=== PATIENT | male | born 1955 | race Caucasian/White ===

== ENCOUNTER 2018-03-24 10:09 | Inpatient (IN) | payer BC ==
--- NOTE | 2018-03-24 10:28 | ER Document Report ---
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 Lost consiousness. remembers falling and when woke up was on his left leg, foot was rotated externally and had pain in left hip. No chest pain, abdominal pain, neck pain or headache. Pain 2/5 at this time , 100 mcg Fentanyl given IV by EMS. Saline lock left antecubital. TRAVEL OUTSIDE OF THE [place] IN LAST 30 DAYS: No - Related Data Allergies/Adverse Reactions: No Known Allergies Allergy (Unverified 03/24/18 10:22) Past Medical History - General Information source: Patient - Social History Smoking Status: Former Smoker Frequency of alcohol use: None Drug Abuse: None Occupation: Retired Lives with: Family Family History: Reviewed & Not Pertinent - Past Medical History Cardiac Medical History: Reports: Hx Hypercholesterolemia, Hx Hypertension Endocrine Medical History: Reports: Hx Diabetes Mellitus Type 2 Review of Systems - Review of Systems Constitutional: No symptoms reported EENT: No symptoms reported Cardiovascular: No symptoms reported Respiratory: No symptoms reported Gastrointestinal: No symptoms reported Genitourinary: No symptoms reported Male Genitourinary: No symptoms reported Musculoskeletal: See HPI Skin: No symptoms reported Hematologic/Lymphatic: No symptoms reported Neurological/Psychological: No symptoms reported Physical Exam - Vital signs Vitals: Resp Pulse Ox 13 96 03/24/18 10:14 03/24/18 10:14 Interpretation: Normal - General General appearance: Appears well, Alert In distress: None - HEENT Head: Normocephalic, Atraumatic Eyes: Normal Conjunctiva: Normal Extraocular movements intact: Yes Pupils: PERRL Tympanic membrane: Normal Mucous membranes: Normal Neck: Supple - non tender c spine - Respiratory Respiratory status: No respiratory distress Chest status: Nontender Breath sounds: Normal Chest palpation: Normal - Cardiovascular Rhythm: Regular Heart sounds: Normal auscultation Murmur: No - Abdominal Inspection: Normal Distension: No distension Bowel sounds: Normal Tenderness: Nontender. No: Tender Organomegaly: No organomegaly - Back Back: Normal, Nontender - thoracc and lumbosacral - Extremities General upper extremity: Normal inspection, Nontender, Normal color, Normal ROM , Normal temperature General lower extremity: Tender - left great trochantur Notes: 2 + jennifer DP - Neurological Neuro grossly intact: Yes Cognition: Normal Orientation: AAOx4 Anne Coma Scale Eye Opening: Spontaneous [place] Coma Scale Verbal: Oriented [place] Coma Scale Motor: Obeys Commands Anne Coma Scale Total: 15 Speech: Normal Motor strength normal: LUE, RUE, LLE, RLE Sensory: Normal - Psychological Associated symptoms: Normal affect, Normal mood - Skin Skin Temperature: Warm Skin Moisture: Dry Skin Color: Normal Course - Re-evaluation Re-evalutation: 03/24/18 10:[address] is negative for degenerative Lizbeth's cervical spine, femoral neck fracture. EKG shows normal sinus rhythm with a right bundle branch block and a left anterior fascicular block. No EKG to compare it to. 03/24/18 11:[address] Partida who will take care of the hip of the patient is admitted by the hospitalist. Dr. Partida will do the surgery tomorrow. 03/24/18 11:29 03/24/18 11:31 Dr hall called for the admission per dr. Mir direction. Dr. hall wants the pt admitted to general surgery since he is a trauma pt. 03/24/18 11:58 03/24/18 12:[address] Clement who will come see the patient. 03/24/18 13:24 Dr. Clement will admit the patient he wants me to add in a chest x-ray which I did. I called Dr. Hall back and will put in a medicine consult 03/24/18 14:27 Nurse told me that the blood pressure was 90 systolic his arm was above his heart. His IV was not connected. I reconnected the IV and started giving him a IV bolus. Within 300 mL's of fluid his blood pressure was 114 systolic. I checked his abdomen again it is still nontender. The lab work was okay. I called Dr. Clement about him putting in admission orders and told him about the tenderness to his left chest that he did not have originally we will be getting a IV contrast CT of the chest. 03/24/18 16:03 ct chest and abd are negatuve. pt up to his room. - Vital Signs Vital signs: Temp Pulse Resp BP Pulse Ox 98.6 F 66 17 107/65 94 03/24/18 19:57 03/24/18 19:57 03/24/18 19:57 03/24/18 19:57 03/24/18 19:57 - Laboratory Result Diagrams: 03/24/18 11:19 03/24/18 11:19 Laboratory results interpreted by me: 03/24/18 03/24/18 03/24/18 11:19 11:19 11:19 Plt Count 131 L Seg Neutrophils % 79.5 H Lymphocytes % 10.8 L BUN 27 H Glucose 259 H Creatine Kinase 449 H CK-MB (CK-2) 11.40 H Total Protein 6.1 L Discharge - Discharge Clinical Impression: Hypertension, left chest wall tenderness Hip fracture, left Qualifiers: Encounter type: initial encounter Fracture type: closed Qualified Code(s): S72.002A - Fracture of unspecified part of neck of left femur, initial encounter for closed fracture Diabetes Qualifiers: Diabetes mellitus type: type 2 Diabetes mellitus care home insulin use: without manager long term care use Diabetes mellitus complication status: without complication Qualified Code(s): E11.9 - Type 2 diabetes mellitus without complications Hyperlipidemia Qualifiers: Hyperlipidemia type: unspecified Qualified Code(s): E78.5 - Hyperlipidemia, unspecified Fall Qualifiers: Encounter type: initial encounter Qualified Code(s): W19.XXXA - Unspecified fall, initial encounter Condition: Stable Disposition: ADMITTED INPATIENT Admitting Provider: Surgicalist
--- NOTE | 2018-03-24 10:54 | RADIOLOGY REPORT (SQ) ---
EXAM DESCRIPTION: CT HEAD WITHOUT COMPLETED DATE/TIME: 03/24/2018 10:48 am REASON FOR STUDY: headache COMPARISON: None. TECHNIQUE: Axial images acquired through the brain without intravenous contrast. Images reviewed wi th bone, brain and subdural windows. Images stored on PACS. All CT scanners at this facility use dose modulation, iterative reconstruction, and/or weight based d osing when appropriate to reduce radiation dose to as low as reasonably achievable (ALARA). [facility]: Dose Right [facility]: CareDose [facility]: Dose Right [facility]: Teradose 4D [facility]: [employer] RADIATION DOSE: CT Rad equipment meets quality standard of care and radiation dose reduction techniq ues were employed. CTDIvol: 53.2 mGy. DLP: 1017 mGy-cm. mGy. LIMITATIONS: None. FINDINGS: VENTRICLES: Normal size and contour. CEREBRUM: No masses. No hemorrhage. No midline shift. No evidence for acute infarction. Normal gra y/white matter differentiation. No areas of low density in the white matter. CEREBELLUM: No masses. No hemorrhage. No alteration of density. No evidence for acute infarction. EXTRAAXIAL SPACES: No fluid collections. No masses. ORBITS AND GLOBE: No intra- or extraconal masses. Normal contour of globe without masses. CALVARIUM: No fracture. PARANASAL SINUSES: No fluid or mucosal thickening. SOFT TISSUES: No mass or hematoma. OTHER: No other significant finding. IMPRESSION: NO ACUTE INTRACRANIAL IMAGING FINDINGS. EVIDENCE OF ACUTE STROKE: NO. COMMENT: Quality ID # 436: Final reports with documentation of one or more dose reduction techniques (e.g., Automated exposure control, adjustment of the mA and/or kV according to patient size, use of iterative reconstruction technique) TECHNICAL DOCUMENTATION: JOB ID: [id number] [employer]- All Rights Reserved Reading location - IP/workstation name: [email or web address]
--- NOTE | 2018-03-24 10:54 | RADIOLOGY REPORT (SQ) ---
EXAM DESCRIPTION: CT CERVICAL SPINE WITHOUT COMPLETED DATE/TIME: 03/24/2018 10:48 am REASON FOR STUDY: fell through arabella light COMPARISON: None. TECHNIQUE: Axial images acquired through the cervical spine without intravenous contrast. Images re viewed with lung, soft tissue and bone windows. Reconstructed coronal and sagittal MPR images review ed. Images stored on PACS. All CT scanners at this facility use dose modulation, iterative reconstruction, and/or weight based d osing when appropriate to reduce radiation dose to as low as reasonably achievable (ALARA). [facility]: Dose Right [facility]: CareDose [facility]: Dose Right [facility]: Teradose 4D [facility]: [employer] RADIATION DOSE: CT Rad equipment meets quality standard of care and radiation dose reduction techniq ues were employed. CTDIvol: 20.5 mGy. DLP: 423 mGy-cm. mGy. LIMITATIONS: None. FINDINGS: ALIGNMENT: Anatomic. MINERALIZATION: Normal. VERTEBRAL BODIES: No fractures or dislocation. DISCS: Multilevel disc space narrowing with osteophytes. FACETS, LATERAL MASSES, POSTERIOR ELEMENTS: Facet arthropathy. No fractures. No dislocation. No ac aundrea findings. HARDWARE: None in the spine. VISUALIZED RIBS: No fractures. LUNG APICES AND SOFT TISSUES: No significant or acute findings. OTHER: No other significant finding. IMPRESSION: CHRONIC DEGENERATIVE CHANGES. NO ACUTE FINDINGS. TECHNICAL DOCUMENTATION: JOB ID: [id number] Quality ID # [id number]: Final reports with documentation of one or more dose reduction techniques (e.g., Au tomated exposure control, adjustment of the mA and/or kV according to patient size, use of iterative reconstruction technique) 2010 [employer]- All Rights Reserved Reading location - IP/workstation name: [email or web address]
--- NOTE | 2018-03-24 11:10 | RADIOLOGY REPORT (SQ) ---
EXAM DESCRIPTION: HIP LEFT AP/LATERAL COMPLETED DATE/TIME: 03/24/2018 11:01 am REASON FOR STUDY: fall, hip pain COMPARISON: None. NUMBER OF VIEWS: Two views. TECHNIQUE: AP pelvis and additional frog-leg view of the left hip. LIMITATIONS: None. FINDINGS: MINERALIZATION: Normal. LEFT HIP: Moderately displaced intertrochanteric left femoral neck fracture. RIGHT HIP: No fracture or dislocation. No worrisome bone lesions. PUBIS AND ISCHIUM: No fracture. PELVIS: No fracture. SACRUM: No fracture or dislocation. No worrisome bone lesions. LOWER LUMBAR SPINE: No fracture or dislocation. No worrisome bone lesions. Degenerative disc disease . SOFT TISSUES: No findings. OTHER: No other significant finding. IMPRESSION: LEFT FEMORAL NECK FRACTURE ABOVE. TECHNICAL DOCUMENTATION: JOB ID: [id number] [employer]- All Rights Reserved Reading location - IP/workstation name: [email or web address]
[2018-03-24] MEDS ORDERED: HYDROMORPHONE HCL INJ/PF 2 MG/ML AMPULE IV ONE (11:16)
[2018-03-24] MEDS ORDERED: ONDANSETRON HCL INJ/PF 4 MG/2 ML SDV IV ONE (11:16)
[2018-03-24 11:38] LABS: ABSOLUTE EOSINOPHILS # (AUTO) 0.2 10^3/uL (0.0-0.6); ABSOLUTE LYMPHOCYTES (AUTO) 0.9 10^3/uL (0.5-4.7); ABSOLUTE MONOCYTES (AUTO) 0.6 10^3/uL (0.1-1.4); ABSOLUTE NEUT (AUTO) 6.7 10^3/uL (1.7-8.2); BASOPHILS % (AUTO) 0.4 % (0-2); HEMOGLOBIN 13.8 g/dL (13.5-17.0); LYMPHOCYTES % (AUTO) 10.8 % (13-45); MEAN CORPUSCULAR HEMOGLOBIN 30.9 pg (27.0-33.4); MEAN CORPUSCULAR HGB CONC 34.6 g/dL (32.0-36.0); MEAN CORPUSCULAR VOLUME 89 fl (80-97); MONOCYTES % (AUTO) 7.3 % (3-13); PLATELET COUNT 131 10^3/uL (150-450); RED BLOOD COUNT 4.48 10^6/uL (4.35-5.55); RED CELL DISTRIBUTION WIDTH 13.2 % (11.5-14.0); SEGMENTED NEUTROPHILS % (AUTO) 79.5 % (42-78); TOTAL CELLS COUNTED % (AUTO) 100 %; WHITE BLOOD COUNT 8.5 10^3/uL (4.0-10.5)
[2018-03-24 11:52] LABS: ALANINE AMINOTRANSFERASE 57 U/L (21-72); ALBUMIN 3.9 g/dL (3.5-5.0); ANION GAP 11 (5-19); ASPARTATE AMINO TRANSFERASE 47 U/L (17-59); BILIRUBIN,DIRECT 0.2 mg/dL (0.0-0.4); BILIRUBIN,TOTAL 0.6 mg/dL (0.2-1.3); BLOOD UREA NITROGEN 27 mg/dL (7-20); CALCIUM 9.5 mg/dL (8.4-10.2); CARBON DIOXIDE 27 mmol/L (22-30); CHLORIDE 106 mmol/L (98-107); CREATINE KINASE 449 U/L (55-170); GLUCOSE 259 mg/dL (75-110); NEONATAL BILIRUBIN RESULT 0.4 mg/dL (0.1-1.1); POTASSIUM 4.5 mmol/L (3.6-5.0); SODIUM 144.3 mmol/L (137-145); TOTAL PROTEIN 6.1 g/dL (6.3-8.2)
[2018-03-24 12:02] LABS: ALKALINE PHOSPHATASE 107 U/L (38-126)
[2018-03-24 12:03] LABS: TROPONIN I < 0.012 ng/mL
[2018-03-24] MEDS ORDERED: NORMAL SALINE 1000 ML 1,000 ML IV ONE ×2 (12:23→14:22)
[2018-03-24] MEDS ORDERED: DIPH/PERTUSS(ACELL)/TETANUS VAC/PF 0.5 ML SYR (>=10YO) IM ONE (12:32)
--- NOTE | 2018-03-24 13:57 | RADIOLOGY REPORT (SQ) ---
EXAM DESCRIPTION: CHEST SINGLE VIEW COMPLETED DATE/TIME: 03/24/2018 1:48 pm REASON FOR STUDY: fall COMPARISON: None. NUMBER OF VIEWS: One view. TECHNIQUE: Single frontal radiographic view of the chest acquired. LIMITATIONS: None. FINDINGS: LUNGS AND PLEURA: Low lung volumes. No opacities, masses or pneumothorax. No pleural eff usion. MEDIASTINUM AND HILAR STRUCTURES: No masses. No contour abnormality. HEART AND VASCULAR STRUCTURES: Normal size. No evidence for failure. BONES: No acute findings. HARDWARE: None in the chest. OTHER: No other significant finding. IMPRESSION: LOW LUNG VOLUMES. NO SIGNIFICANT RADIOGRAPHIC FINDING IN THE CHEST. TECHNICAL DOCUMENTATION: JOB ID: [id number] [employer]- All Rights Reserved Reading location - IP/workstation name: [email or web address]
[2018-03-24] MEDS ORDERED: NORMAL SALINE 1000 ML 500 ML IV ONE (14:12)
[2018-03-24] MEDS ORDERED: FENTANYL CITRATE INJ/PF 100 MCG/2 ML AMPUL IV ONE (14:34)
--- NOTE | 2018-03-24 14:44 | RADIOLOGY REPORT (SQ) ---
EXAM DESCRIPTION: CHEST SINGLE VIEW COMPLETED DATE/TIME: 03/24/2018 2:37 pm REASON FOR STUDY: REPEAT XRAY PER SARA DUE TO LOW LUNG VOLUMES COMPARISON: 03/24/2018 EXAM PARAMETERS: NUMBER OF VIEWS: One view. TECHNIQUE: Single frontal radiographic view of the chest acquired. RADIATION DOSE: NA LIMITATIONS: None. FINDINGS: LUNGS AND PLEURA: No opacities, masses or pneumothorax. No pleural effusion. MEDIASTINUM AND HILAR STRUCTURES: No masses. Contour normal. HEART AND VASCULAR STRUCTURES: Heart stable in size. Normal vasculature. BONES: No acute findings. HARDWARE: None in the chest. OTHER: No other significant finding. IMPRESSION: NO ACUTE RADIOGRAPHIC FINDING IN THE CHEST. TECHNICAL DOCUMENTATION: JOB ID: [id number] [employer]- All Rights Reserved Reading location - IP/workstation name: [email or web address]
[2018-03-24] MEDS ORDERED: DEXTROSE 40% GEL 15 GM TUBE PO PRN ×2 (14:47)
[2018-03-24] MEDS ORDERED: DEXTROSE 50%-WATER 25 GM/50 ML DISP.SYRIN IV PRN ×2 (14:47)
[2018-03-24] MEDS ORDERED: GLUCAGON,HUMAN RECOMB 1 MG INJ IM PRN (14:47)
--- NOTE | 2018-03-24 15:57 | RADIOLOGY REPORT (SQ) ---
EXAM DESCRIPTION: CT CHEST WITH COMPLETED DATE/TIME: 03/24/2018 3:44 pm REASON FOR STUDY: fall left chest wall tenderness COMPARISON: None. TECHNIQUE: CT scan of the chest performed using helical scanning technique with dynamic intravenous contrast injection. Images reviewed with lung, soft tissue and bone windows. Reconstructed coronal and sagittal MPR images reviewed. All images stored on PACS. All CT scanners at this facility use dose modulation, iterative reconstruction, and/or weight based d osing when appropriate to reduce radiation dose to as low as reasonably achievable (ALARA). [facility]: Dose Right [facility]: CareDose [facility]: Dose Right [facility]: Teradose 4D [facility]: [employer] CONTRAST TYPE AND DOSE: 100 Isovue 370- low osmolar. RENAL FUNCTION: Creatinine 1.02 RADIATION DOSE: . LIMITATIONS: None. FINDINGS: LUNGS AND PLEURA: Mild dependent atelectasis at the lung bases. No effusions. No pneumot horax. HILAR AND MEDIASTINAL STRUCTURES: No identified masses or abnormal nodes. HEART AND VASCULAR STRUCTURES: No aneurysm or dissection. No central pulmonary emboli. No pericardi al effusion. HARDWARE: None in the chest. UPPER ABDOMEN: See separate report of the CT of the abdomen. THYROID AND OTHER SOFT TISSUES: No masses. No adenopathy. BONES: No significant finding. OTHER: No other significant finding. IMPRESSION: NORMAL CT OF THE CHEST WITH IV CONTRAST. TECHNICAL DOCUMENTATION: JOB ID: [id number] Quality ID # [id number]: Final reports with documentation of one or more dose reduction techniques (e.g., Au tomated exposure control, adjustment of the mA and/or kV according to patient size, use of iterative reconstruction technique) 2010 [employer]- All Rights Reserved Reading location - IP/workstation name: [email or web address]
--- NOTE | 2018-03-24 16:00 | RADIOLOGY REPORT (SQ) ---
EXAM DESCRIPTION: CT ABD/PELVIS WITH IV ONLY COMPLETED DATE/TIME: 03/24/2018 3:44 pm REASON FOR STUDY: fall COMPARISON: None. TECHNIQUE: CT scan of the abdomen and pelvis performed using helical scanning technique with dynamic intravenous contrast injection. No oral contrast. Images reviewed with lung, soft tissue, and bone windows. Reconstructed coronal and sagittal MPR images reviewed. Delayed images for evaluation of the urinary system also acquired. All images stored on PACS. All CT scanners at this facility use dose modulation, iterative reconstruction, and/or weight based d osing when appropriate to reduce radiation dose to as low as reasonably achievable (ALARA). [facility]: Dose Right [facility]: CareDose [facility]: Dose Right [facility]: Teradose 4D [facility]: [employer] CONTRAST TYPE AND DOSE: contrast/concentration: Isovue 370.00 mg/ml; Total Contrast Delivered: 100.0 ml; Total Saline Delivered: 55.0 ml RENAL FUNCTION: Creatinine 1.2 RADIATION DOSE: CT Rad equipment meets quality standard of care and radiation dose reduction techniq ues were employed. CTDIvol: 16.2 - 18.1 mGy. DLP: 2391 mGy-cm.. LIMITATIONS: None. FINDINGS: LOWER CHEST: See separate report of the CT of the chest. LIVER: Normal size. No masses. No dilated ducts. SPLEEN: Normal size. No focal lesions. PANCREAS: No masses. No significant calcifications. No adjacent inflammation or peripancreatic fluid collections. Pancreatic duct not dilated. GALLBLADDER: No identified stones by CT criteria. No inflammatory changes to suggest cholecystitis. ADRENAL GLANDS: No significant masses or asymmetry. RIGHT KIDNEY AND URETER: No solid masses. No significant calcifications. No hydronephrosis or hyd roureter. LEFT KIDNEY AND URETER: Cyst. No significant calcifications. No hydronephrosis or hydroureter. AORTA AND VESSELS: No aneurysm. No dissection. Renal arteries, SMA, celiac without stenosis. RETROPERITONEUM: No retroperitoneal adenopathy, hemorrhage or masses. BOWEL AND PERITONEAL CAVITY: Distended stomach. APPENDIX: Normal. PELVIS: No mass. No free fluid. Normal bladder. ABDOMINAL WALL: No masses. No hernias. BONES: No significant or acute findings. OTHER: No other significant finding. IMPRESSION: Distended stomach. No other significant finding. TECHNICAL DOCUMENTATION: JOB ID: [id number] Quality ID # [id number]: Final reports with documentation of one or more dose reduction techniques (e.g., Au tomated exposure control, adjustment of the mA and/or kV according to patient size, use of iterative reconstruction technique) 2010 [employer]- All Rights Reserved Reading location - IP/workstation name: [email or web address]
[2018-03-24] MEDS ORDERED: RINGERS SOLUTION,LACTATED 1,000 ML IV PRN (16:27)
[2018-03-24] MEDS: INSULIN LISPRO 100 UNIT/ML 3 ML VIAL SUBCUT PRN (17:53)
[2018-03-24 18:12] LABS: APPEARANCE,URINE CLEAR; BILIRUBIN,URINE NEGATIVE (NEGATIVE); COLOR,URINE YELLOW; GLUCOSE, URINE >=500 mg/dL (NEGATIVE); KETONES,URINE NEGATIVE (NEGATIVE); LEUKOCYTE ESTERASE,URINE NEGATIVE (NEGATIVE); NITRITE,URINE NEGATIVE (NEGATIVE); PROTEIN,URINE 30 mg/dL (NEGATIVE); URINE SPECIFIC GRAVITY 1.039
[2018-03-24] MEDS: MORPHINE SULFATE 10 MG/ML INJ IV PRN ×2 (18:37→21:13)
[2018-03-24] MEDS ORDERED: PROPOFOL 1,000 MG/100 ML INFUS..BTL IV PRN (18:48)
--- NOTE | 2018-03-24 18:56 | PDOC CONSULTATION ---
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 and fell down about 12 feet onto his left hip Patient was brought to the ED for evaluation and was diagnosed of the left femur fracture without any other obvious injuries Patient was admitted under general surgery was orthopedic consult and medical consult Upon questioning patient has moderate pain He is alert awake he denies any loss of consciousness Denies chest pain no abdominal pain Denies nausea no vomiting History of Present Illness: J CARLOS MCKENNA is a 62 year old male Past Medical History Cardiac Medical History: Reports: Hyperlipidema, Hypertension Endocrine Medical History: Reports: Diabetes Mellitus Type 2 Past Surgical History Past Surgical History: Reports: Other - Cataract surgery Social History Information Source: Patient Lives with: Family Smoking Status: Never Smoker Frequency of Alcohol Use: Rare Hx Recreational Drug Use: No Drugs: None Hx Prescription Drug Abuse: No - Advance Directive Resuscitation Status: Full Code Surrogate healthcare decision maker:: His Nancy Family History Family History: CVA, DM Parental Family History Reviewed: Yes Children Family History Reviewed: Yes Sibling(s) Family History Reviewed.: Yes Medication/Allergy Home Medications: Ascorbic Acid [Vitamin C 500 mg Tablet] 500 mg PO DAILY 03/24/18 Aspirin 81 mg PO DAILY 03/24/18 Atorvastatin Calcium [Atorvastatin Calcium] 40 mg PO QHS 03/24/18 Difluprednate [Durezol] 1 drop OS Q12 03/24/18 Dulaglutide [Trulicity] 1.5 mg SQ MO@1000 03/24/18 Gabapentin [Gabapentin] 600 mg PO Q8 03/24/18 Krill/Alexander-3/Dha/Epa/Lipids [Alexander-3 Krill Oil 500 mg Sfgl] 1 each PO DAILY 01/06 Lisinopril [Prinivil 5 mg Tablet] 5 mg PO DAILY 03/24/18 Multivitamin [Multivitamins] 1 each PO QHS 03/24/18 Nepafenac [Ilevro] 1 drop OS DAILY 03/24/18 Sitagliptin Phos/Metformin HCl [Janumet 50-1,000 mg Tablet] 1 each PO BID Vitamin B Complex/Folic Acid [B-Complex Tablet] 0.4 mg PO QHS 03/24/18 Allergies/Adverse Reactions: No Known Allergies Allergy (Unverified 03/24/18 10:22) Review of Systems Constitutional: ABSENT: as per HPI, anorexia, chills, fatigue, fever(s), headache(s), night sweats, weakness, weight gain, weight loss, other Cardiovascular: ABSENT: chest pain, dyspnea on exertion, edema, orthropnea, palpitations Respiratory: ABSENT: cough, hemoptysis Gastrointestinal: ABSENT: abdominal pain, constipation, diarrhea, hematemesis, hematochezia, nausea, vomiting Musculoskeletal: PRESENT: as per HPI Neurological: ABSENT: abnormal gait, abnormal speech, confusion, dizziness, focal weakness, syncope Psychiatric: ABSENT: anxiety, depression, homidical ideation, suicidal ideation Endocrine: ABSENT: cold intolerance, heat intolerance, polydipsia, polyuria Hematologic/Lymphatic: ABSENT: easy bleeding, easy bruising Physical Exam Vital Signs: Temp Pulse Resp BP Pulse Ox 98.1 F 15 104/62 95 03/24/18 11:07 03/24/18 15:16 03/24/18 15:16 03/24/18 15:16 General appearance: PRESENT: mild distress, well-developed, well-nourished Head exam: PRESENT: atraumatic, normocephalic Eye exam: PRESENT: conjunctiva pink, EOMI, PERRLA. ABSENT: scleral icterus Ear exam: PRESENT: normal external ear exam Neck exam: ABSENT: carotid bruit, JVD, lymphadenopathy, thyromegaly Respiratory exam: PRESENT: clear to auscultation jennifer. ABSENT: rales, rhonchi, wheezes Cardiovascular exam: PRESENT: RRR. ABSENT: diastolic murmur, rubs, systolic murmur Pulses: PRESENT: normal dorsalis pedis pul GI/Abdominal exam: PRESENT: normal bowel sounds, soft. ABSENT: distended, guarding, mass, organolmegaly, rebound, tenderness Rectal exam: PRESENT: deferred Extremities exam: PRESENT: other - Left lower extremity leg externally rotated and flexed Tenderness and deformity of left thigh Neurological exam: PRESENT: alert, awake, oriented to person, oriented to place , oriented to time, oriented to situation, CN II-XII grossly intact. ABSENT: motor sensory deficit Psychiatric exam: PRESENT: appropriate affect Skin exam: PRESENT: dry, intact, warm. ABSENT: cyanosis, rash Results Laboratory Results: 03/24/18 17:00 Urine Color YELLOW Urine Appearance CLEAR Urine pH 5.0 Ur Specific [place] 1.039 Urine Protein 30 H Urine Glucose (UA) >=500 H Urine Ketones NEGATIVE Urine Blood NEGATIVE Urine Nitrite NEGATIVE Ur Leukocyte Esterase NEGATIVE Urine WBC (Auto) 4 Urine RBC (Auto) 2 EKG Comments: . SINUS RHYTHM [RLAFB] . RBBB AND LAFB Impressions: Hip X-Ray 03/24/18 10:26 IMPRESSION: LEFT FEMORAL NECK FRACTURE ABOVE. Cervical Spine CT 03/24/18 10:30 IMPRESSION: CHRONIC DEGENERATIVE CHANGES. NO ACUTE FINDINGS. Head CT 03/24/18 10:30 IMPRESSION: NO ACUTE INTRACRANIAL IMAGING FINDINGS. EVIDENCE OF ACUTE STROKE: NO. Chest X-Ray 03/24/18 13:22 IMPRESSION: LOW LUNG VOLUMES. NO SIGNIFICANT RADIOGRAPHIC FINDING IN THE CHEST. Chest CT 03/24/18 14:25 IMPRESSION: NORMAL CT OF THE CHEST WITH IV CONTRAST. Abdomen/Pelvis CT 03/24/18 14:42 IMPRESSION: Distended stomach. No other significant finding. Assessment & Plan - Diagnosis (1) Fracture of left femur Is this a current diagnosis for this admission?: Yes Plan: Management as per orthopedics (2) Hypertension Is this a current diagnosis for this admission?: Yes Plan: Continue previous meds (3) Diabetes Qualifiers: Diabetes mellitus type: type 2 Diabetes mellitus senior living insulin use: without senior living use Diabetes mellitus complication status: without complication Qualified Code(s): E11.9 - Type 2 diabetes mellitus without complications Is this a current diagnosis for this admission?: Yes Plan: Accu-Chek before meals at bedtime and lispro coverage (4) Fall Qualifiers: Encounter type: initial encounter Qualified Code(s): W19.XXXA - Unspecified fall, initial encounter Is this a current diagnosis for this admission?: Yes Plan: There was no history of syncopal episode ; no dizziness Follows accidental - Time Time Spent with patient: Patient has no history of coronary artery disease He does not give any history of exertional chest pain No history of palpitations and or shortness of breath Patient is at relatively low cardiac risk for surgery Time Spent: 50 to 70 Minutes
[2018-03-24] MEDS ORDERED: NORMAL SALINE 1000 ML 1,000 ML IV PRN (19:20)
--- NOTE | 2018-03-24 20:08 | PDOC H&P ---
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 He fell on his feet and then to his left side and then had a transient loss of consciousness. When he woke up, his left leg was bent c/o pains left hip. He denies any other injury other than mild pains left chest. Denies head injury. He claims he had 2 other episodes of transient loss of consciousness (Syncope) in the past. Past Medical History Cardiac Medical History: Reports: Hyperlipidema, Hypertension Endocrine Medical History: Reports: Diabetes Mellitus Type 2 Past Surgical History Past Surgical History: Reports: Other - Cataract surgery Social History Lives with: Family Smoking Status: Never Smoker Frequency of Alcohol Use: Rare Hx Recreational Drug Use: No Drugs: None Hx Prescription Drug Abuse: No - Advance Directive Resuscitation Status: Full Code Family History Family History: CVA, DM Parental Family History Reviewed: Yes Children Family History Reviewed: No Sibling(s) Family History Reviewed.: No Medication/Allergy Home Medications: Ascorbic Acid [Vitamin C 500 mg Tablet] 500 mg PO QHS 03/24/18 Aspirin 81 mg PO DAILY 03/24/18 Atorvastatin Calcium [Atorvastatin Calcium] 40 mg PO QHS 03/24/18 Difluprednate [Durezol] 1 drop OS Q12 03/24/18 Dulaglutide [Trulicity] 1.5 mg SQ MO@1000 03/24/18 Gabapentin [Gabapentin] 600 mg PO Q8 03/24/18 Krill/[place]-3/Dha/Epa/Lipids [[place]-3 Krill Oil 500 mg Sfgl] 1 each PO DAILY 01/06 Lisinopril [Prinivil 5 mg Tablet] 5 mg PO DAILY 03/24/18 Multivitamin [Multivitamins] 1 each PO QHS 03/24/18 Nepafenac [Ilevro] 1 drop OS DAILY 03/24/18 Sitagliptin Phos/Metformin HCl [Janumet 50-1,000 mg Tablet] 1 each PO BID Vitamin B Complex/Folic Acid [B-Complex Tablet] 0.4 mg PO QHS 03/24/18 Allergies/Adverse Reactions: No Known Allergies Allergy (Unverified 03/24/18 10:22) Review of Systems Constitutional: PRESENT: other - no headache Eyes: PRESENT: other - no visual/hearing changes Cardiovascular: PRESENT: other - no chest pains/cough Gastrointestinal: PRESENT: other - no abdominal pains Musculoskeletal: PRESENT: other - no back pains Neurological: PRESENT: syncope Hematologic/Lymphatic: PRESENT: other - no easy bruising Physical Exam Vital Signs: Temp Pulse Resp BP Pulse Ox 98.1 F 15 104/62 95 03/24/18 11:07 03/24/18 15:16 03/24/18 15:16 03/24/18 15:16 Intake & Output 03/23/18 03/24/18 03/25/18 06:59 06:59 06:59 Intake Total 450 Output Total 300 Balance 150 General appearance: PRESENT: mild distress Head exam: PRESENT: atraumatic Eye exam: PRESENT: conjunctiva pink Mouth exam: PRESENT: moist Neck exam: PRESENT: full ROM Respiratory exam: PRESENT: chest wall tenderness - mild left side, clear to auscultation jennifer Cardiovascular exam: PRESENT: RRR Pulses: PRESENT: normal radial pulses Vascular exam: PRESENT: normal capillary refill GI/Abdominal exam: PRESENT: soft Rectal exam: PRESENT: deferred Extremities exam: PRESENT: other - left leg externally rotated and shortened Palpable left ankle pulses Musculoskeletal exam: PRESENT: tenderness - left hip Neurological exam: PRESENT: alert, oriented to person, oriented to time, oriented to situation, reflexes normal Psychiatric exam: PRESENT: appropriate affect Skin exam: PRESENT: normal color, warm Results Laboratory Results: 03/24/18 17:00 Urine Color YELLOW Urine Appearance CLEAR Urine pH 5.0 Ur Specific [place] 1.039 Urine Protein 30 H Urine Glucose (UA) >=500 H Urine Ketones NEGATIVE Urine Blood NEGATIVE Urine Nitrite NEGATIVE Ur Leukocyte Esterase NEGATIVE Urine WBC (Auto) 4 Urine RBC (Auto) 2 Impressions: Hip X-Ray 03/24/18 10:26 IMPRESSION: LEFT FEMORAL NECK FRACTURE ABOVE. Cervical Spine CT 03/24/18 10:30 IMPRESSION: CHRONIC DEGENERATIVE CHANGES. NO ACUTE FINDINGS. Head CT 03/24/18 10:30 IMPRESSION: NO ACUTE INTRACRANIAL IMAGING FINDINGS. EVIDENCE OF ACUTE STROKE: NO. Chest X-Ray 03/24/18 13:22 IMPRESSION: LOW LUNG VOLUMES. NO SIGNIFICANT RADIOGRAPHIC FINDING IN THE CHEST. Chest CT 03/24/18 14:25 IMPRESSION: NORMAL CT OF THE CHEST WITH IV CONTRAST. Abdomen/Pelvis CT 03/24/18 14:42 IMPRESSION: Distended stomach. No other significant finding. Assessment & Plan - Diagnosis (1) Syncope Is this a current diagnosis for this admission?: Yes - Time Time Spent: 30 to 50 Minutes - Inpatient Certification Medical Necessity: Need For IV Fluids, Need for Pain Control, Need for Surgery - Plan Summary Plan Summary: Hospitalist consult for other comorbidities such as DM, syncope NPO past midnite Possible repair left hip fx by Ortho tomorrow
[2018-03-24] MEDS: ATORVASTATIN CALCIUM 40 MG TABLET PO SCH (21:11)
[2018-03-24] MEDS: GABAPENTIN 300 MG CAPSULE PO SCH (21:12)
[2018-03-24] MEDS: MULTIVITAMIN TABLET PO SCH (21:12)
[2018-03-24] MEDS ORDERED: VITAMIN B COMPLEX PO SCH (22:00)
[2018-03-24] MEDS ORDERED: FOLIC ACID PO SCH (22:00)
--- NOTE | 2018-03-24 23:18 | EKG REPORT ---
SEVERITY:- ABNORMAL ECG - SINUS RHYTHM RBBB AND LAFB : Confirmed by: Marry Guzman 24-Mar-2018 23:17:48
[2018-03-25] MEDS: MORPHINE SULFATE 10 MG/ML INJ IV PRN ×6 (00:07→16:44)
[2018-03-25] MEDS: INSULIN LISPRO 100 UNIT/ML 3 ML VIAL SUBCUT PRN ×3 (06:51→22:40)
[2018-03-25] MEDS ORDERED: CEFAZOLIN SODIUM 2 GM in DEXTROSE 5%-WATER 100 ML IV PRN (08:22)
[2018-03-25] MEDS ORDERED: CEFAZOLIN SODIUM 2 GM in NORMAL SALINE 100 ML IV PRN (09:13)
[2018-03-25] MEDS ORDERED: KRILL PO SCH (10:00)
[2018-03-25] MEDS ORDERED: EPA PO SCH (10:00)
[2018-03-25] MEDS ORDERED: LIPIDS PO SCH (10:00)
[2018-03-25] MEDS ORDERED: OMEGA PO SCH (10:00)
[2018-03-25] MEDS ORDERED: DHA PO SCH (10:00)
[2018-03-25] MEDS ORDERED: [UNRECOGNIZED DRUG - OTHER] PO SCH (10:00)
[2018-03-25] MEDS ORDERED: FENTANYL CITRATE INJ/PF 100 MCG/2 ML AMPUL ONE (10:45)
[2018-03-25] MEDS ORDERED: MIDAZOLAM 2 MG/2 ML INJ ONE (10:46)
[2018-03-25] MEDS ORDERED: PROPOFOL INJ 200 MG/20 ML VIAL IV ONE (10:46)
[2018-03-25] MEDS ORDERED: EPHEDRINE SULFATE INJ 50 MG/1 ML AMPULE ONE (10:46)
[2018-03-25] MEDS ORDERED: TETRACAINE HCL/PF 20MG/2ML AMPULE (SPINAL) ONE (10:47)
[2018-03-25] MEDS ORDERED: ONDANSETRON HCL INJ/PF 4 MG/2 ML SDV ONE (10:48)
[2018-03-25] MEDS ORDERED: BUPIVACAINE HCL 0.5 % INJ/PF 30 ML SDV ONE (10:56)
[2018-03-25] MEDS ORDERED: DIPHENHYDRAMINE HCL 50 MG/ML VIAL IV PRN (11:54)
[2018-03-25] MEDS ORDERED: FENTANYL CITRATE INJ/PF 100 MCG/2 ML AMPUL IV PRN ×3 (11:54)
[2018-03-25] MEDS ORDERED: MEPERIDINE HCL/PF INJ 25 MG/1 ML DISP.SYRIN IV PRN (11:54)
[2018-03-25] MEDS ORDERED: MORPHINE SULFATE 10 MG/ML INJ IV PRN (11:54)
[2018-03-25] MEDS ORDERED: PROMETHAZINE HCL INJ 25 MG/1 ML VIAL IV PRN ×2 (11:54)
--- NOTE | 2018-03-25 12:04 | Operative Report ---
Operative Report DATE OF SURGERY: 03/25/18 PREOPERATIVE DIAGNOSIS: Left intratrochanteric femur fracture OPERATION: Open reduction internal fixation left intratrochanteric femur fracture SURGEON: DOMI GROSSMAN ANESTHESIA: Spinal ESTIMATED BLOOD LOSS: 100 PROCEDURE: With the patient supine on the fracture table the left lower extremities manipulated to affected near anatomic reduction. Subsequent was prepped and draped in a sterile fashion. The pin was placed percutaneously down to the greater trochanter and down into the femoral diaphysis. Its position is confirmed in 2 planes with fluoroscopy. A combined reamers and used to fashion a cortical opening. This is removed as well as initial guidepin. A long ball- tipped guide pin is placed down the femur and the femoral length is measured to be 380 mm. Flexible reamers were then used to increase the intramedullary diameter 12.5 mm. Subsequently a Radha gamma 3 11 mm x 125 by 380 mm nail was advanced over the guide hank to an appropriate depth. A 100 mm proximal interlock is placed. A 55 mm distal interlock is placed. The fracture reduction and the hardware placement is again checked fluoroscopically and felt to be adequate. The wounds irrigated, closed with Vicryl followed by aurea and a sterile dressing. The patient returned to PACU in satisfactory condition.
[2018-03-25] MEDS ORDERED: ONDANSETRON 4 MG TAB.RAPDIS PO PRN (12:58)
[2018-03-25] MEDS ORDERED: RINGERS SOLUTION,LACTATED 1,000 ML IV PRN (13:00)
[2018-03-25] MEDS: GABAPENTIN 300 MG CAPSULE PO SCH ×2 (14:28→21:51)
[2018-03-25] MEDS: ASCORBIC ACID 500 MG TABLET PO SCH (14:29)
[2018-03-25] MEDS: LISINOPRIL 5 MG TABLET PO SCH (14:30)
--- NOTE | 2018-03-25 14:37 | RADIOLOGY REPORT (SQ) ---
EXAM DESCRIPTION: NO CHG FLUORO; HIP IN OPERATING RM COMPLETED DATE/TIME: 03/25/2018 2:27 pm REASON FOR STUDY: ORIF LEFT HIP ASST WITH FLUORO IN OR COMPARISON: 03/24/2018. FLUOROSCOPY TIME: 1.0 minute. 6 images saved to PACS. TECHNIQUE: Intra-operative images acquired during surgical procedure to evaluate progress. NUMBER OF IMAGES: 6 images. LIMITATIONS: None. FINDINGS: Images of the hip and femur acquired during surgical fixation and placement of hardware. IMPRESSION: IMAGE(S) OBTAINED DURING PROCEDURE. COMMENT: Quality ID [id number]: Final reports for procedures using fluoroscopy that document radiation exp osure indices, or exposure time and number of fluorographic images (if radiation exposure indices are not available) Please consult full operative report of the attending physician for description of the procedure. TECHNICAL DOCUMENTATION: JOB ID: [id number] [employer]- All Rights Reserved Reading location - IP/workstation name: [email or web address]
--- NOTE | 2018-03-25 14:37 | RADIOLOGY REPORT (SQ) ---
EXAM DESCRIPTION: NO CHG FLUORO; HIP IN OPERATING RM COMPLETED DATE/TIME: 03/25/2018 2:27 pm REASON FOR STUDY: ORIF LEFT HIP ASST WITH FLUORO IN OR COMPARISON: 03/24/2018. FLUOROSCOPY TIME: 1.0 minute. 6 images saved to PACS. TECHNIQUE: Intra-operative images acquired during surgical procedure to evaluate progress. NUMBER OF IMAGES: 6 images. LIMITATIONS: None. FINDINGS: Images of the hip and femur acquired during surgical fixation and placement of hardware. IMPRESSION: IMAGE(S) OBTAINED DURING PROCEDURE. COMMENT: Quality ID [id number]: Final reports for procedures using fluoroscopy that document radiation exp osure indices, or exposure time and number of fluorographic images (if radiation exposure indices are not available) Please consult full operative report of the attending physician for description of the procedure. TECHNICAL DOCUMENTATION: JOB ID: [id number] [employer]- All Rights Reserved Reading location - IP/workstation name: [email or web address]
[2018-03-25] MEDS: OXYCODONE HCL IR 5 MG TABLET PO PRN ×2 (15:23→21:51)
--- NOTE | 2018-03-25 17:32 | PDOC PROGRESS REPORT ---
Subjective Progress Note for:: 03/25/18 Subjective:: The patient is resting in his bed. He just recently got back from the operating room. He is having some cramping in his legs as well as some postoperative pain. He states that he has had some hot and cold flashes. He is not acutely short of breath. No nausea vomiting or diarrhea. No urinary complaints. He had a bowel movement yesterday Reason For Visit: FRACTURE LEFT FEMORAL NECK,DIABETES MELLITUS Physical Exam Vital Signs: Temp Pulse Resp BP Pulse Ox 98.9 F 86 14 147/71 H 88 L 03/25/18 14:43 03/25/18 14:43 03/25/18 13:36 03/25/18 14:43 03/25/18 14:43 Intake & Output 03/24/18 03/25/18 03/26/18 06:59 06:59 06:59 Intake Total 2600 3360 Output Total 2880 885 Balance -280 2475 Weight 101.6 kg General appearance: PRESENT: other - The patient is somewhat groggy and uncomfortable after surgery. Head exam: PRESENT: atraumatic, normocephalic Eye exam: PRESENT: conjunctiva pink, EOMI, PERRLA. ABSENT: scleral icterus Mouth exam: PRESENT: moist, tongue midline Neck exam: ABSENT: carotid bruit, JVD, lymphadenopathy, thyromegaly Respiratory exam: PRESENT: clear to auscultation jennifer. ABSENT: rales, rhonchi, wheezes Cardiovascular exam: PRESENT: RRR. ABSENT: diastolic murmur, rubs, systolic murmur GI/Abdominal exam: PRESENT: normal bowel sounds, soft. ABSENT: distended, guarding, mass, organolmegaly, rebound, tenderness Rectal exam: PRESENT: deferred Musculoskeletal exam: ABSENT: ambulatory Neurological exam: PRESENT: alert, awake, oriented to person, oriented to place , oriented to time, oriented to situation, CN II-XII grossly intact. ABSENT: motor sensory deficit Psychiatric exam: PRESENT: appropriate affect, normal mood. ABSENT: homicidal ideation, suicidal ideation Skin exam: PRESENT: dry, intact, warm. ABSENT: cyanosis, rash Results Laboratory Results: 03/24/18 17:00 Urine Color YELLOW Urine Appearance CLEAR Urine pH 5.0 Ur Specific [place] 1.039 Urine Protein 30 H Urine Glucose (UA) >=500 H Urine Ketones NEGATIVE Urine Blood NEGATIVE Urine Nitrite NEGATIVE Ur Leukocyte Esterase NEGATIVE Urine WBC (Auto) 4 Urine RBC (Auto) 2 Impressions: Cervical Spine CT 03/24/18 10:30 IMPRESSION: CHRONIC DEGENERATIVE CHANGES. NO ACUTE FINDINGS. Head CT 03/24/18 10:30 IMPRESSION: NO ACUTE INTRACRANIAL IMAGING FINDINGS. EVIDENCE OF ACUTE STROKE: NO. Chest X-Ray 03/24/18 13:22 IMPRESSION: LOW LUNG VOLUMES. NO SIGNIFICANT RADIOGRAPHIC FINDING IN THE CHEST. Chest CT 03/24/18 14:25 IMPRESSION: NORMAL CT OF THE CHEST WITH IV CONTRAST. Abdomen/Pelvis CT 03/24/18 14:42 IMPRESSION: Distended stomach. No other significant finding. Fluoroscopy 03/25/18 00:00 IMPRESSION: IMAGE(S) OBTAINED DURING PROCEDURE. Hip X-Ray 03/25/18 00:00 IMPRESSION: IMAGE(S) OBTAINED DURING PROCEDURE. Assessment & Plan - Diagnosis (1) Closed left femoral fracture Is this a current diagnosis for this admission?: Yes Plan: This is something I could the patient is postoperative day #0. Plan of care per orthopedic surgery. He seems to have tolerated the procedure well. I am going to give him some Flexeril for his muscle spasms. (2) Hypertension Is this a current diagnosis for this admission?: Yes Plan: Blood pressure is adequately controlled (3) Diabetes mellitus Is this a current diagnosis for this admission?: Yes Plan: He has sliding scale insulin available (5) Fall Is this a current diagnosis for this admission?: Yes Plan: Physical therapy will start working with the patient as soon as he is cleared by orthopedic surgery (6) Thrombocytopenia Is this a current diagnosis for this admission?: Yes Plan: Of undetermined significance. He will have a CBC drawn in the morning - Time Time Spent with patient: 25-34 minutes - Inpatient Certification Medical Necessity: Other - Inpatient hospitalization remains necessary. This is postoperative day 0. Timing of disposition will be determined by his postoperative course. Sound hospitalist will continue to follow along with you.
[2018-03-25] MEDS: CYCLOBENZAPRINE HCL 10 MG TABLET PO SCH (18:11)
[2018-03-25] MEDS: CEFAZOLIN SODIUM 2 GM in NORMAL SALINE 100 ML IV SCH (18:11)
[2018-03-25] MEDS: MULTIVITAMIN TABLET PO SCH (21:51)
[2018-03-25] MEDS: ATORVASTATIN CALCIUM 40 MG TABLET PO SCH (21:51)
[2018-03-26] MEDS: MORPHINE SULFATE 10 MG/ML INJ IV PRN ×2 (00:38→12:31)
[2018-03-26] MEDS: CYCLOBENZAPRINE HCL 10 MG TABLET PO SCH ×3 (02:56→17:20)
[2018-03-26] MEDS: CEFAZOLIN SODIUM 2 GM in NORMAL SALINE 100 ML IV SCH (02:56)
[2018-03-26 05:21] LABS: ANION GAP 10 (5-19); BLOOD UREA NITROGEN 14 mg/dL (7-20); CALCIUM 9.2 mg/dL (8.4-10.2); CARBON DIOXIDE 30 mmol/L (22-30); CHLORIDE 101 mmol/L (98-107); GLUCOSE 211 mg/dL (75-110); POTASSIUM 4.5 mmol/L (3.6-5.0); SODIUM 141.3 mmol/L (137-145)
--- NOTE | 2018-03-26 06:42 | PDOC PROGRESS REPORT ---
Subjective Progress Note for:: 03/26/18 Reason For Visit: FRACTURE LEFT FEMORAL NECK,DIABETES MELLITUS 62-year-old white male with past medical history of diabetes now postop day 1 from an open reduction internal fixation of a left intratrochanteric femur fracture under spinal anesthetic. Patient is now complaining of left lower extremity numbness from mid thigh distally. Physical Exam Vital Signs: Temp Pulse Resp BP Pulse Ox 37.2 C 85 17 141/67 H 97 03/25/18 23:43 03/25/18 23:43 03/25/18 23:43 03/25/18 23:43 03/26/18 00:30 Intake & Output 03/24/18 03/25/18 03/26/18 06:59 06:59 06:59 Intake Total 2600 5710 Output Total 2880 5385 Balance -280 325 Weight 101.6 kg 101.5 kg General appearance: PRESENT: mild distress Head exam: PRESENT: normocephalic Respiratory exam: PRESENT: unlabored Cardiovascular exam: PRESENT: RRR Pulses: PRESENT: +1 pedal pulses bilateral Vascular exam: PRESENT: normal capillary refill GI/Abdominal exam: PRESENT: soft Rectal exam: PRESENT: deferred Extremities exam: PRESENT: other - Left lower extremity dressings are clean dry and intact. Subjective sensory deficit beginning mid thigh and extending distally to the foot. Patient is unable to do an active straight leg raise but this may be pain inhibited. The patient has a reasonable active range of motion of the foot and ankle. There is brisk capillary refill and palpable pulses. Neurological exam: PRESENT: alert, awake, oriented to person, oriented to place , oriented to time, oriented to situation, motor sensory deficit Psychiatric exam: PRESENT: appropriate affect, normal mood. ABSENT: homicidal ideation, suicidal ideation Skin exam: PRESENT: dry, intact, warm. ABSENT: cyanosis, rash Results Laboratory Results: 03/26/18 04:04 03/26/18 04:04 03/26/18 03/26/18 04:04 04:04 WBC Cancelled RBC Cancelled Hgb Cancelled Hct Cancelled MCV Cancelled MCH Cancelled MCHC Cancelled RDW Cancelled Plt Count Cancelled Seg Neutrophils % Cancelled Lymphocytes % Cancelled Monocytes % Cancelled Eosinophils % Cancelled Basophils % Cancelled Absolute Neutrophils Cancelled Absolute Lymphocytes Cancelled Absolute Monocytes Cancelled Absolute Eosinophils Cancelled Absolute Basophils Cancelled Sodium 141.3 Potassium 4.5 Chloride 101 Carbon Dioxide 30 Anion Gap 10 BUN 14 Creatinine 0.86 Est GFR ( Amer) > 60 Est GFR (Non-Af Amer) > 60 Glucose 211 H Calcium 9.2 Magnesium 1.5 L Impressions: Cervical Spine CT 03/24/18 10:30 IMPRESSION: CHRONIC DEGENERATIVE CHANGES. NO ACUTE FINDINGS. Head CT 03/24/18 10:30 IMPRESSION: NO ACUTE INTRACRANIAL IMAGING FINDINGS. EVIDENCE OF ACUTE STROKE: NO. Chest X-Ray 03/24/18 13:22 IMPRESSION: LOW LUNG VOLUMES. NO SIGNIFICANT RADIOGRAPHIC FINDING IN THE CHEST. Chest CT 03/24/18 14:25 IMPRESSION: NORMAL CT OF THE CHEST WITH IV CONTRAST. Abdomen/Pelvis CT 03/24/18 14:42 IMPRESSION: Distended stomach. No other significant finding. Fluoroscopy 03/25/18 00:00 IMPRESSION: IMAGE(S) OBTAINED DURING PROCEDURE. Hip X-Ray 03/25/18 00:00 IMPRESSION: IMAGE(S) OBTAINED DURING PROCEDURE. Status: Imported from PACS Assessment & Plan - Diagnosis (1) Closed left femoral fracture Is this a current diagnosis for this admission?: Yes Plan: 62-year-old white male postop day 1 from left hip open reduction internal fixation. Patient with complaints of left lower extremity numbness. There is not a distal motor deficit and there is brisk capillary refill. I discussed this with Dr. Rodriguez who will assess the patient.. - Time Time Spent with patient: 15-24 minutes Anticipated discharge: Home with Homehealth Within: within 24 hours
[2018-03-26 07:17] LABS: ABSOLUTE BASOPHILS # (AUTO) 0.1 10^3/uL (0.0-0.2); ABSOLUTE EOSINOPHILS # (AUTO) 0.2 10^3/uL (0.0-0.6); ABSOLUTE LYMPHOCYTES (AUTO) 0.9 10^3/uL (0.5-4.7); ABSOLUTE MONOCYTES (AUTO) 0.8 10^3/uL (0.1-1.4); ABSOLUTE NEUT (AUTO) 7.1 10^3/uL (1.7-8.2); BASOPHILS % (AUTO) 1.3 % (0-2); EOSINOPHILS % (AUTO) 1.8 % (0-6); HEMATOCRIT 37.9 % (37.9-51.0); HEMOGLOBIN 12.9 g/dL (13.5-17.0); LYMPHOCYTES % (AUTO) 9.8 % (13-45); MEAN CORPUSCULAR HEMOGLOBIN 30.5 pg (27.0-33.4); MEAN CORPUSCULAR HGB CONC 34.2 g/dL (32.0-36.0); MEAN CORPUSCULAR VOLUME 89 fl (80-97); MONOCYTES % (AUTO) 8.4 % (3-13); RED BLOOD COUNT 4.25 10^6/uL (4.35-5.55); RED CELL DISTRIBUTION WIDTH 13.3 % (11.5-14.0); SEGMENTED NEUTROPHILS % (AUTO) 78.7 % (42-78); TOTAL CELLS COUNTED % (AUTO) 100 %; WHITE BLOOD COUNT 9.1 10^3/uL (4.0-10.5)
[2018-03-26] MEDS: OXYCODONE HCL IR 5 MG TABLET PO PRN ×2 (07:36→17:19)
[2018-03-26 07:55] LABS: PLATELET COUNT 95 10^3/uL (150-450)
[2018-03-26] MEDS: OMEGA-3 ACID ETHYL ESTERS 1 GM CAPSULE PO SCH (08:19)
[2018-03-26] MEDS: LISINOPRIL 5 MG TABLET PO SCH (10:14)
[2018-03-26] MEDS: ASCORBIC ACID 500 MG TABLET PO SCH (10:14)
[2018-03-26] MEDS: MAGNESIUM SULFATE/D5W 1 GM/100 ML RTUPB IV SCH ×2 (10:15→11:52)
[2018-03-26] MEDS: GABAPENTIN 300 MG CAPSULE PO SCH ×2 (10:15→22:02)
[2018-03-26] MEDS: INSULIN LISPRO 100 UNIT/ML 3 ML VIAL SUBCUT PRN ×3 (12:30→22:13)
--- NOTE | 2018-03-26 12:43 | PDOC PROGRESS REPORT ---
Subjective Progress Note for:: 03/26/18 Subjective:: The patient is resting in his bed. His family is at the bedside. He states that he is feeling better than yesterday. He was able to sit up on the side of the bed and stand up and take a few side steps with physical therapy. Overall he denies fever chills. No chest pain, shortness of breath or cough. No nausea vomiting or diarrhea. No urinary complaints. He does complain of some numbness in his lower extremities which is chronic for him. Reason For Visit: FRACTURE LEFT FEMORAL NECK,DIABETES MELLITUS Physical Exam Vital Signs: Temp Pulse Resp BP Pulse Ox 98.7 F 89 14 145/91 H 96 03/26/18 08:14 03/26/18 08:14 03/26/18 08:14 03/26/18 08:14 03/26/18 08:58 Intake & Output 03/25/18 03/26/18 03/27/18 06:59 06:59 06:59 Intake Total 2600 5710 Output Total 2880 5385 Balance -280 325 Weight 101.6 kg 101.5 kg General appearance: PRESENT: no acute distress, well-developed, well-nourished Head exam: PRESENT: atraumatic, normocephalic Ear exam: PRESENT: normal external ear exam Neck exam: ABSENT: carotid bruit, JVD, lymphadenopathy, thyromegaly Respiratory exam: PRESENT: clear to auscultation jennifer. ABSENT: rales, rhonchi, wheezes Cardiovascular exam: PRESENT: RRR. ABSENT: diastolic murmur, rubs, systolic murmur GI/Abdominal exam: PRESENT: normal bowel sounds, soft. ABSENT: distended, guarding, mass, organolmegaly, rebound, tenderness Rectal exam: PRESENT: deferred Extremities exam: PRESENT: full ROM. ABSENT: calf tenderness, clubbing, pedal edema Neurological exam: PRESENT: alert, awake, oriented to person, oriented to place , oriented to time, oriented to situation, CN II-XII grossly intact. ABSENT: motor sensory deficit Psychiatric exam: PRESENT: appropriate affect, normal mood. ABSENT: homicidal ideation, suicidal ideation Skin exam: PRESENT: dry, intact, warm, other - Surgical incisions on the left leg looks clean with no evidence of infection.. ABSENT: cyanosis, rash Results Laboratory Results: 03/26/18 06:57 03/26/18 04:04 03/26/18 03/26/18 03/26/18 04:04 04:04 06:57 WBC Cancelled 9.1 RBC Cancelled 4.25 L Hgb Cancelled 12.9 L Hct Cancelled 37.9 MCV Cancelled 89 MCH Cancelled 30.5 MCHC Cancelled 34.2 RDW Cancelled 13.3 Plt Count Cancelled 95 L Seg Neutrophils % Cancelled 78.7 H Lymphocytes % Cancelled 9.8 L Monocytes % Cancelled 8.4 Eosinophils % Cancelled 1.8 Basophils % Cancelled 1.3 Absolute Neutrophils Cancelled 7.1 Absolute Lymphocytes Cancelled 0.9 Absolute Monocytes Cancelled 0.8 Absolute Eosinophils Cancelled 0.2 Absolute Basophils Cancelled 0.1 Sodium 141.3 Potassium 4.5 Chloride 101 Carbon Dioxide 30 Anion Gap 10 BUN 14 Creatinine 0.86 Est GFR ( Amer) > 60 Est GFR (Non-Af Amer) > 60 Glucose 211 H Calcium 9.2 Magnesium 1.5 L Impressions: Cervical Spine CT 03/24/18 10:30 IMPRESSION: CHRONIC DEGENERATIVE CHANGES. NO ACUTE FINDINGS. Head CT 03/24/18 10:30 IMPRESSION: NO ACUTE INTRACRANIAL IMAGING FINDINGS. EVIDENCE OF ACUTE STROKE: NO. Chest X-Ray 03/24/18 13:22 IMPRESSION: LOW LUNG VOLUMES. NO SIGNIFICANT RADIOGRAPHIC FINDING IN THE CHEST. Chest CT 03/24/18 14:25 IMPRESSION: NORMAL CT OF THE CHEST WITH IV CONTRAST. Abdomen/Pelvis CT 03/24/18 14:42 IMPRESSION: Distended stomach. No other significant finding. Fluoroscopy 03/25/18 00:00 IMPRESSION: IMAGE(S) OBTAINED DURING PROCEDURE. Hip X-Ray 03/25/18 00:00 IMPRESSION: IMAGE(S) OBTAINED DURING PROCEDURE. Assessment & Plan - Diagnosis (1) Closed left femoral fracture Is this a current diagnosis for this admission?: Yes Plan: This is postoperative day #1. Plan of care per orthopedic surgery. He seems to be doing well. (2) Hypertension Is this a current diagnosis for this admission?: Yes Plan: Blood pressure is adequately controlled (3) Diabetes mellitus Is this a current diagnosis for this admission?: Yes (5) Fall Is this a current diagnosis for this admission?: Yes Plan: Physical therapy has seen the patient today. He is doing well. (6) Thrombocytopenia Is this a current diagnosis for this admission?: Yes Plan: Of undetermined significance at this point. His platelet level has somewhat worsened. He is not on any heparin products or Lovenox. (7) DVT prophylaxis Is this a current diagnosis for this admission?: Yes Plan: I will have the nursing staff asked Dr. Partida what he wants to do for DVT prophylaxis. The patient currently is not on any agents. He does have mechanical prophylaxis in place. - Time Time Spent with patient: 15-24 minutes - Inpatient Certification Medical Necessity: Other - Inpatient hospitalization remains necessary. This is postoperative day #1 and the patient seems to be doing well. Sound hospitalist will continue to follow along with you.
[2018-03-26] MEDS: MULTIVITAMIN TABLET PO SCH (22:02)
[2018-03-26] MEDS: ATORVASTATIN CALCIUM 40 MG TABLET PO SCH (22:03)
[2018-03-26] MEDS: DIAZEPAM 2 MG TABLET PO PRN (22:03)
[2018-03-27] MEDS: OXYCODONE HCL IR 5 MG TABLET PO PRN ×3 (00:02→21:05)
[2018-03-27] MEDS: CYCLOBENZAPRINE HCL 10 MG TABLET PO SCH ×3 (02:10→17:40)
--- NOTE | 2018-03-27 07:12 | PDOC PROGRESS REPORT ---
Subjective Progress Note for:: 03/27/18 Reason For Visit: FRACTURE LEFT FEMORAL NECK,DIABETES MELLITUS 62-year-old white male status post open reduction internal fixation of a left proximal femur fracture. Postoperative course has been characterized for a sensory deficit over the left lower extremity which largely resolved this morning. Physical Exam Vital Signs: Temp Pulse Resp BP Pulse Ox 36.2 C 71 18 135/76 H 98 03/27/18 00:00 03/27/18 00:00 03/27/18 00:00 03/27/18 00:00 03/27/18 00:00 Intake & Output 03/26/18 03/27/18 03/28/18 06:59 06:59 06:59 Intake Total 5710 595 Output Total 5359 5800 Balance 325 -2055 Weight 101.5 kg 97.9 kg General appearance: PRESENT: no acute distress Head exam: PRESENT: normocephalic Respiratory exam: PRESENT: unlabored Cardiovascular exam: PRESENT: RRR Pulses: PRESENT: +1 pedal pulses bilateral Vascular exam: PRESENT: normal capillary refill Extremities exam: PRESENT: other - Left lower extremity dressings are clean dry and intact. Leg lengths are equal. Distal neurovascular examination is intact. Neurological exam: PRESENT: alert, awake, oriented to person, oriented to place , oriented to time, oriented to situation. ABSENT: motor sensory deficit Psychiatric exam: PRESENT: appropriate affect, normal mood. ABSENT: homicidal ideation, suicidal ideation Skin exam: PRESENT: dry, intact, warm. ABSENT: cyanosis, rash Results Laboratory Results: 03/26/18 06:57 03/26/18 04:04 03/26/18 06:57 WBC 9.1 RBC 4.25 L Hgb 12.9 L Hct 37.9 MCV 89 MCH 30.5 MCHC 34.2 RDW 13.3 Plt Count 95 L Seg Neutrophils % 78.7 H Lymphocytes % 9.8 L Monocytes % 8.4 Eosinophils % 1.8 Basophils % 1.3 Absolute Neutrophils 7.1 Absolute Lymphocytes 0.9 Absolute Monocytes 0.8 Absolute Eosinophils 0.2 Absolute Basophils 0.1 Impressions: Cervical Spine CT 03/24/18 10:30 IMPRESSION: CHRONIC DEGENERATIVE CHANGES. NO ACUTE FINDINGS. Head CT 03/24/18 10:30 IMPRESSION: NO ACUTE INTRACRANIAL IMAGING FINDINGS. EVIDENCE OF ACUTE STROKE: NO. Chest X-Ray 03/24/18 13:22 IMPRESSION: LOW LUNG VOLUMES. NO SIGNIFICANT RADIOGRAPHIC FINDING IN THE CHEST. Chest CT 03/24/18 14:25 IMPRESSION: NORMAL CT OF THE CHEST WITH IV CONTRAST. Abdomen/Pelvis CT 03/24/18 14:42 IMPRESSION: Distended stomach. No other significant finding. Fluoroscopy 03/25/18 00:00 IMPRESSION: IMAGE(S) OBTAINED DURING PROCEDURE. Hip X-Ray 03/25/18 00:00 IMPRESSION: IMAGE(S) OBTAINED DURING PROCEDURE. Status: Imported from PACS Assessment & Plan - Diagnosis (1) Closed left femoral fracture Is this a current diagnosis for this admission?: Yes Plan: Patient to be mobilized with physical therapy and weightbearing as tolerated basis. Anticipate discharge home with home health services and DME once functional status permits
[2018-03-27] MEDS: ASPIRIN 81 MG TABLET, CHEWABLE PO SCH (08:20)
[2018-03-27] MEDS: OMEGA-3 ACID ETHYL ESTERS 1 GM CAPSULE PO SCH (08:21)
[2018-03-27 09:15] LABS: ABSOLUTE EOSINOPHILS # (AUTO) 0.2 10^3/uL (0.0-0.6); ABSOLUTE LYMPHOCYTES (AUTO) 0.8 10^3/uL (0.5-4.7); ABSOLUTE MONOCYTES (AUTO) 0.6 10^3/uL (0.1-1.4); ABSOLUTE NEUT (AUTO) 7.1 10^3/uL (1.7-8.2); BASOPHILS % (AUTO) 0.5 % (0-2); EOSINOPHILS % (AUTO) 1.9 % (0-6); HEMATOCRIT 36.6 % (37.9-51.0); HEMOGLOBIN 12.7 g/dL (13.5-17.0); LYMPHOCYTES % (AUTO) 9.2 % (13-45); MEAN CORPUSCULAR HEMOGLOBIN 31.2 pg (27.0-33.4); MEAN CORPUSCULAR HGB CONC 34.7 g/dL (32.0-36.0); MEAN CORPUSCULAR VOLUME 90 fl (80-97); MONOCYTES % (AUTO) 7.4 % (3-13); PLATELET COUNT 106 10^3/uL (150-450); RED BLOOD COUNT 4.07 10^6/uL (4.35-5.55); RED CELL DISTRIBUTION WIDTH 13.5 % (11.5-14.0); TOTAL CELLS COUNTED % (AUTO) 100 %; WHITE BLOOD COUNT 8.8 10^3/uL (4.0-10.5)
[2018-03-27 09:39] LABS: ANION GAP 11 (5-19); BLOOD UREA NITROGEN 20 mg/dL (7-20); CALCIUM 8.7 mg/dL (8.4-10.2); CARBON DIOXIDE 28 mmol/L (22-30); CHLORIDE 96 mmol/L (98-107); GLUCOSE 340 mg/dL (75-110); POTASSIUM 4.4 mmol/L (3.6-5.0); SODIUM 135.1 mmol/L (137-145)
[2018-03-27] MEDS: GABAPENTIN 300 MG CAPSULE PO SCH ×2 (10:23→21:04)
[2018-03-27] MEDS: LISINOPRIL 5 MG TABLET PO SCH (10:23)
[2018-03-27] MEDS: ASCORBIC ACID 500 MG TABLET PO SCH (10:24)
[2018-03-27] MEDS: INSULIN LISPRO 100 UNIT/ML 3 ML VIAL SUBCUT PRN ×3 (13:13→23:47)
--- NOTE | 2018-03-27 14:57 | PDOC PROGRESS REPORT ---
Subjective Progress Note for:: 03/27/18 Subjective:: The patient is resting in his bed. He was able to ambulate out to the hallway with physical therapy today and overall he feels like he is making progress. The numbness in his leg is improving. His biggest complaint today is that he is quite constipated and has not had a bowel movement in several days. We are going to start him on a bowel regimen. Also his blood sugars have been uncontrolled and we are going to add back some of his oral medications today.I spent quite some time discussing the plan of care with the patient and his and all of their questions were answered. Reason For Visit: FRACTURE LEFT FEMORAL NECK,DIABETES MELLITUS Physical Exam Vital Signs: Temp Pulse Resp BP Pulse Ox 98.1 F 81 18 128/65 H 97 03/27/18 08:00 03/27/18 08:00 03/27/18 08:00 03/27/18 08:00 03/27/18 08:00 Intake & Output 03/26/18 03/27/18 03/28/18 06:59 06:59 06:59 Intake Total 5710 595 477 Output Total 5385 2650 275 Balance 325 -2055 202 Weight 101.5 kg 97.9 kg General appearance: PRESENT: no acute distress, well-developed, well-nourished Head exam: PRESENT: atraumatic, normocephalic Mouth exam: PRESENT: dry mucosa Respiratory exam: PRESENT: clear to auscultation jennifer. ABSENT: rales, rhonchi, wheezes Cardiovascular exam: PRESENT: RRR. ABSENT: diastolic murmur, rubs, systolic murmur GI/Abdominal exam: PRESENT: normal bowel sounds, soft. ABSENT: distended, guarding, mass, organolmegaly, rebound, tenderness Rectal exam: PRESENT: deferred Extremities exam: ABSENT: calf tenderness, clubbing, pedal edema Musculoskeletal exam: PRESENT: tenderness Neurological exam: PRESENT: alert, awake, oriented to person, oriented to place , oriented to time, oriented to situation, CN II-XII grossly intact. ABSENT: motor sensory deficit Psychiatric exam: PRESENT: appropriate affect, normal mood. ABSENT: homicidal ideation, suicidal ideation Skin exam: PRESENT: dry, intact, warm. ABSENT: cyanosis, rash Results Laboratory Results: 03/27/18 08:45 03/27/18 08:45 03/27/18 03/27/18 08:45 08:45 WBC 8.8 RBC 4.07 L Hgb 12.7 L Hct 36.6 L MCV 90 MCH 31.2 MCHC 34.7 RDW 13.5 Plt Count 106 L Seg Neutrophils % 81.0 H Lymphocytes % 9.2 L Monocytes % 7.4 Eosinophils % 1.9 Basophils % 0.5 Absolute Neutrophils 7.1 Absolute Lymphocytes 0.8 Absolute Monocytes 0.6 Absolute Eosinophils 0.2 Absolute Basophils 0.0 Sodium 135.1 L Potassium 4.4 Chloride 96 L Carbon Dioxide 28 Anion Gap 11 BUN 20 Creatinine 0.95 Est GFR ( Amer) > 60 Est GFR (Non-Af Amer) > 60 Glucose 340 H Calcium 8.7 Phosphorus 3.0 Magnesium 1.8 Impressions: Cervical Spine CT 03/24/18 10:30 IMPRESSION: CHRONIC DEGENERATIVE CHANGES. NO ACUTE FINDINGS. Head CT 03/24/18 10:30 IMPRESSION: NO ACUTE INTRACRANIAL IMAGING FINDINGS. EVIDENCE OF ACUTE STROKE: NO. Chest X-Ray 03/24/18 13:22 IMPRESSION: LOW LUNG VOLUMES. NO SIGNIFICANT RADIOGRAPHIC FINDING IN THE CHEST. Chest CT 03/24/18 14:25 IMPRESSION: NORMAL CT OF THE CHEST WITH IV CONTRAST. Abdomen/Pelvis CT 03/24/18 14:42 IMPRESSION: Distended stomach. No other significant finding. Fluoroscopy 03/25/18 00:00 IMPRESSION: IMAGE(S) OBTAINED DURING PROCEDURE. Hip X-Ray 03/25/18 00:00 IMPRESSION: IMAGE(S) OBTAINED DURING PROCEDURE. Assessment & Plan - Diagnosis (1) Closed left femoral fracture Is this a current diagnosis for this admission?: Yes Plan: This is postoperative day #2. Plan of care per orthopedic surgery. He seems to be doing well. As soon as he has a bowel movement he is medically stable for discharge from a medical standpoint. (2) Hypertension Is this a current diagnosis for this admission?: Yes Plan: Blood pressure is adequately controlled (3) Diabetes mellitus Is this a current diagnosis for this admission?: Yes Plan: Blood sugars are uncontrolled. He takes Janumet at home. We do not have this available here in the hospital. I am going to start the patient on 1000 mg of metformin twice daily. He will continue sliding-scale coverage. (4) Hyperlipidemia Is this a current diagnosis for this admission?: Yes Plan: No stable. Continue home regimen (5) Fall Is this a current diagnosis for this admission?: Yes Plan: Physical therapy has seen the patient today. He is doing well. (6) Thrombocytopenia Is this a current diagnosis for this admission?: Yes Plan: Improving (7) DVT prophylaxis Is this a current diagnosis for this admission?: Yes Plan: Per orthopedic surgery. - Time Time Spent with patient: 15-24 minutes - Inpatient Certification Medical Necessity: Other - Inpatient hospitalization remains necessary. This is postoperative day #3. I am going to treat the patient's constipation today. We will also try to get his blood sugar under better control. As soon as the patient has a bowel movement, he is medically stable for discharge. [facility] will continue to follow along with you while he is here in the hospital.
[2018-03-27] MEDS ORDERED: GABAPENTIN 300 MG CAPSULE PO ONE (16:00)
[2018-03-27] MEDS: LACTULOSE SYRUP 20 GM/30 ML UDCUP PO SCH ×2 (17:37→21:04)
[2018-03-27] MEDS: METFORMIN HCL 500 MG TABLET PO SCH (17:38)
[2018-03-27] MEDS: DOCUSATE SODIUM 100 MG CAPSULE PO SCH (17:39)
[2018-03-27] MEDS ORDERED: (PENDING PHARMACY ID) (Difluprednate [Durezol] 1 DROP) OS SCH (20:00)
[2018-03-27] MEDS: MULTIVIT-STRESS FORMULA/ZINC TABLET PO SCH (21:04)
[2018-03-27] MEDS: ATORVASTATIN CALCIUM 40 MG TABLET PO SCH (21:04)
[2018-03-27] MEDS: MULTIVITAMIN TABLET PO SCH (21:05)
[2018-03-27] MEDS: POLYETHYLENE GLYCOL 3350 POWDER 17 GM/1 PACKET PO SCH (21:05)
[2018-03-27] MEDS: DIAZEPAM 2 MG TABLET PO PRN (23:46)
[2018-03-28] MEDS: CYCLOBENZAPRINE HCL 10 MG TABLET PO SCH ×3 (04:00→16:55)
[2018-03-28 04:12] LABS: ABSOLUTE BASOPHILS # (AUTO) 0.1 10^3/uL (0.0-0.2); ABSOLUTE EOSINOPHILS # (AUTO) 0.3 10^3/uL (0.0-0.6); ABSOLUTE MONOCYTES (AUTO) 0.7 10^3/uL (0.1-1.4); ABSOLUTE NEUT (AUTO) 5.9 10^3/uL (1.7-8.2); BASOPHILS % (AUTO) 1.2 % (0-2); EOSINOPHILS % (AUTO) 3.3 % (0-6); HEMATOCRIT 36.5 % (37.9-51.0); HEMOGLOBIN 12.7 g/dL (13.5-17.0); LYMPHOCYTES % (AUTO) 12.8 % (13-45); MEAN CORPUSCULAR HEMOGLOBIN 31.1 pg (27.0-33.4); MEAN CORPUSCULAR HGB CONC 34.8 g/dL (32.0-36.0); MEAN CORPUSCULAR VOLUME 90 fl (80-97); MONOCYTES % (AUTO) 8.7 % (3-13); PLATELET COUNT 115 10^3/uL (150-450); RED BLOOD COUNT 4.08 10^6/uL (4.35-5.55); RED CELL DISTRIBUTION WIDTH 13.4 % (11.5-14.0); TOTAL CELLS COUNTED % (AUTO) 100 %
[2018-03-28 04:36] LABS: ANION GAP 11 (5-19); BLOOD UREA NITROGEN 25 mg/dL (7-20); CALCIUM 9.1 mg/dL (8.4-10.2); CARBON DIOXIDE 26 mmol/L (22-30); CHLORIDE 101 mmol/L (98-107); GLUCOSE 292 mg/dL (75-110); POTASSIUM 4.9 mmol/L (3.6-5.0); SODIUM 137.7 mmol/L (137-145)
--- NOTE | 2018-03-28 06:00 | PDOC PROGRESS REPORT ---
Subjective Progress Note for:: 03/28/18 Reason For Visit: FRACTURE LEFT FEMORAL NECK,DIABETES MELLITUS 62-year-old white male's status post open reduction internal fixation of a left proximal femur fracture. Patient making excellent progress with physical therapy. Pain is under reasonable control. Physical Exam Vital Signs: Temp Pulse Resp BP Pulse Ox 37.1 C 88 18 117/64 95 03/27/18 23:36 03/27/18 23:36 03/27/18 23:36 03/27/18 23:36 03/27/18 23:36 Intake & Output 03/26/18 03/27/18 03/28/18 06:59 06:59 06:59 Intake Total 5710 595 717 Output Total 5333 0950 275 Balance 325 -2954 442 Weight 101.5 kg 97.9 kg 98.2 kg General appearance: PRESENT: no acute distress Head exam: PRESENT: normocephalic Respiratory exam: PRESENT: unlabored Cardiovascular exam: PRESENT: RRR Pulses: PRESENT: +1 pedal pulses bilateral Vascular exam: PRESENT: normal capillary refill GI/Abdominal exam: PRESENT: soft Rectal exam: PRESENT: deferred Extremities exam: PRESENT: other - Left lower extremity dressings clean dry and intact. Leg lengths are equal. Distal neurovascular examination is intact. Neurological exam: PRESENT: alert, awake, oriented to person, oriented to place , oriented to time, oriented to situation. ABSENT: motor sensory deficit Psychiatric exam: PRESENT: appropriate affect, normal mood. ABSENT: homicidal ideation, suicidal ideation Skin exam: PRESENT: dry, intact, warm. ABSENT: cyanosis, rash Results Laboratory Results: 03/28/18 03:58 03/28/18 03:58 03/27/18 03/27/18 03/28/18 08:45 08:45 03:58 WBC 8.8 8.0 RBC 4.07 L 4.08 L Hgb 12.7 L 12.7 L Hct 36.6 L 36.5 L MCV 90 90 MCH 31.2 31.1 MCHC 34.7 34.8 RDW 13.5 13.4 Plt Count 106 L 115 L Seg Neutrophils % 81.0 H 74.0 Lymphocytes % 9.2 L 12.8 L Monocytes % 7.4 8.7 Eosinophils % 1.9 3.3 Basophils % 0.5 1.2 Absolute Neutrophils 7.1 5.9 Absolute Lymphocytes 0.8 1.0 Absolute Monocytes 0.6 0.7 Absolute Eosinophils 0.2 0.3 Absolute Basophils 0.0 0.1 Sodium 135.1 L Potassium 4.4 Chloride 96 L Carbon Dioxide 28 Anion Gap 11 BUN 20 Creatinine 0.95 Est GFR ( Amer) > 60 Est GFR (Non-Af Amer) > 60 Glucose 340 H Calcium 8.7 Phosphorus 3.0 Magnesium 1.8 03/28/18 03:58 WBC RBC Hgb Hct MCV MCH MCHC RDW Plt Count Seg Neutrophils % Lymphocytes % Monocytes % Eosinophils % Basophils % Absolute Neutrophils Absolute Lymphocytes Absolute Monocytes Absolute Eosinophils Absolute Basophils Sodium 137.7 Potassium 4.9 Chloride 101 Carbon Dioxide 26 Anion Gap 11 BUN 25 H Creatinine 0.92 Est GFR ( Amer) > 60 Est GFR (Non-Af Amer) > 60 Glucose 292 H Calcium 9.1 Phosphorus Magnesium 1.9 Impressions: Cervical Spine CT 03/24/18 10:30 IMPRESSION: CHRONIC DEGENERATIVE CHANGES. NO ACUTE FINDINGS. Head CT 03/24/18 10:30 IMPRESSION: NO ACUTE INTRACRANIAL IMAGING FINDINGS. EVIDENCE OF ACUTE STROKE: NO. Chest X-Ray 03/24/18 13:22 IMPRESSION: LOW LUNG VOLUMES. NO SIGNIFICANT RADIOGRAPHIC FINDING IN THE CHEST. Chest CT 03/24/18 14:25 IMPRESSION: NORMAL CT OF THE CHEST WITH IV CONTRAST. Abdomen/Pelvis CT 03/24/18 14:42 IMPRESSION: Distended stomach. No other significant finding. Fluoroscopy 03/25/18 00:00 IMPRESSION: IMAGE(S) OBTAINED DURING PROCEDURE. Hip X-Ray 03/25/18 00:00 IMPRESSION: IMAGE(S) OBTAINED DURING PROCEDURE. Status: Imported from PACS Assessment & Plan - Diagnosis (1) Closed left femoral fracture Is this a current diagnosis for this admission?: Yes Plan: Patient making progress with physical therapy. Anticipate further physical therapy today and discharge home tomorrow with home health services - Time Time Spent with patient: 15-24 minutes Anticipated discharge: Home with Homehealth Within: within 24 hours
[2018-03-28] MEDS: GABAPENTIN 300 MG CAPSULE PO SCH ×3 (06:26→21:37)
[2018-03-28] MEDS: OMEGA-3 ACID ETHYL ESTERS 1 GM CAPSULE PO SCH (08:11)
[2018-03-28] MEDS: METFORMIN HCL 500 MG TABLET PO SCH ×2 (08:11→16:51)
[2018-03-28] MEDS: ASPIRIN 81 MG TABLET, CHEWABLE PO SCH (08:12)
[2018-03-28] MEDS: INSULIN LISPRO 100 UNIT/ML 3 ML VIAL SUBCUT PRN ×4 (08:12→21:39)
[2018-03-28] MEDS: LISINOPRIL 5 MG TABLET PO SCH (09:35)
[2018-03-28] MEDS: DOCUSATE SODIUM 100 MG CAPSULE PO SCH ×2 (09:35→16:55)
[2018-03-28] MEDS: ASCORBIC ACID 500 MG TABLET PO SCH (09:36)
[2018-03-28] MEDS ORDERED: (PENDING PHARMACY ID) (Nepafenac [Ilevro] 1 DROP) OS SCH (10:00)
--- NOTE | 2018-03-28 10:58 | PDOC PROGRESS REPORT ---
Subjective Progress Note for:: 03/28/18 Subjective:: The patient is doing well. Dr. Partida is thinking about discharging him tomorrow. The patient has not had a bowel movement yet and is getting a little uncomfortable. He has passed some gas. Otherwise he denies fever chills. No chest pain, shortness of breath or cough. No nausea or vomiting. No urinary complaints. The patient's is requesting a trapeze bar for his hospital bed at home. I am going to let the discharge planners now and get them to check with Dr. Partida. Reason For Visit: FRACTURE LEFT FEMORAL NECK,DIABETES MELLITUS Physical Exam Vital Signs: Temp Pulse Resp BP Pulse Ox 98.4 F 83 20 127/63 H 96 03/28/18 08:00 03/28/18 08:00 03/28/18 08:00 03/28/18 08:00 03/28/18 08:00 Intake & Output 03/27/18 03/28/18 03/29/18 06:59 06:59 06:59 Intake Total 595 802 Output Total 2650 275 Balance -2055 527 Weight 97.9 kg 98.2 kg General appearance: PRESENT: no acute distress, well-developed, well-nourished Head exam: PRESENT: atraumatic, normocephalic Mouth exam: PRESENT: moist, tongue midline Neck exam: ABSENT: carotid bruit, JVD, lymphadenopathy, thyromegaly Respiratory exam: PRESENT: clear to auscultation jennifer. ABSENT: rales, rhonchi, wheezes Cardiovascular exam: PRESENT: RRR. ABSENT: diastolic murmur, rubs, systolic murmur Pulses: PRESENT: normal dorsalis pedis pul GI/Abdominal exam: PRESENT: normal bowel sounds, soft. ABSENT: distended, guarding, mass, organolmegaly, rebound, tenderness Rectal exam: PRESENT: deferred Extremities exam: PRESENT: other - Wounds from his surgery are healing well. Neurological exam: PRESENT: alert, awake, oriented to person, oriented to place , oriented to time, oriented to situation, CN II-XII grossly intact. ABSENT: motor sensory deficit Psychiatric exam: PRESENT: appropriate affect, normal mood. ABSENT: homicidal ideation, suicidal ideation Skin exam: PRESENT: dry, intact, warm. ABSENT: cyanosis, rash Results Laboratory Results: 03/28/18 03:58 03/28/18 03:58 03/28/18 03/28/18 03:58 03:58 WBC 8.0 RBC 4.08 L Hgb 12.7 L Hct 36.5 L MCV 90 MCH 31.1 MCHC 34.8 RDW 13.4 Plt Count 115 L Seg Neutrophils % 74.0 Lymphocytes % 12.8 L Monocytes % 8.7 Eosinophils % 3.3 Basophils % 1.2 Absolute Neutrophils 5.9 Absolute Lymphocytes 1.0 Absolute Monocytes 0.7 Absolute Eosinophils 0.3 Absolute Basophils 0.1 Sodium 137.7 Potassium 4.9 Chloride 101 Carbon Dioxide 26 Anion Gap 11 BUN 25 H Creatinine 0.92 Est GFR ( Amer) > 60 Est GFR (Non-Af Amer) > 60 Glucose 292 H Calcium 9.1 Magnesium 1.9 Impressions: Cervical Spine CT 03/24/18 10:30 IMPRESSION: CHRONIC DEGENERATIVE CHANGES. NO ACUTE FINDINGS. Head CT 03/24/18 10:30 IMPRESSION: NO ACUTE INTRACRANIAL IMAGING FINDINGS. EVIDENCE OF ACUTE STROKE: NO. Chest X-Ray 03/24/18 13:22 IMPRESSION: LOW LUNG VOLUMES. NO SIGNIFICANT RADIOGRAPHIC FINDING IN THE CHEST. Chest CT 03/24/18 14:25 IMPRESSION: NORMAL CT OF THE CHEST WITH IV CONTRAST. Abdomen/Pelvis CT 03/24/18 14:42 IMPRESSION: Distended stomach. No other significant finding. Fluoroscopy 03/25/18 00:00 IMPRESSION: IMAGE(S) OBTAINED DURING PROCEDURE. Hip X-Ray 03/25/18 00:00 IMPRESSION: IMAGE(S) OBTAINED DURING PROCEDURE. Assessment & Plan - Diagnosis (1) Closed left femoral fracture Is this a current diagnosis for this admission?: Yes Plan: The patient is doing quite well. It is my understanding that he may be discharged tomorrow. He is stable for discharge from a medical standpoint however I would like for him to have a bowel movement before he goes. (2) Hypertension Is this a current diagnosis for this admission?: Yes Plan: Stable (3) Diabetes mellitus Is this a current diagnosis for this admission?: Yes Plan: Stable (4) Hyperlipidemia Is this a current diagnosis for this admission?: Yes Plan: Continue home regimen (5) Fall Is this a current diagnosis for this admission?: Yes Plan: He will go home with home health services set up by Dr. Partida (6) Thrombocytopenia Is this a current diagnosis for this admission?: Yes Plan: Improving (7) Constipation Is this a current diagnosis for this admission?: Yes Plan: He has been started on a bowel regimen with MiraLAX and Colace. I am going to give him lactulose several times today to see if we can get him to have a bowel movement. This will be stopped as soon as he has a bowel movement. (8) DVT prophylaxis Is this a current diagnosis for this admission?: Yes Plan: Per orthopedic surgery - Time Time Spent with patient: 15-24 minutes - The patient is medically stable for discharge. I would like for him to have a bowel movement before he goes. [facility] hospitalist will continue following him here in the hospital. Thank you for the consult of this patient. - Inpatient Certification Medical Necessity: Other - Inpatient hospitalization remains necessary. Orthopedic surgery plans to discharge the patient in the morning.
[2018-03-28] MEDS ORDERED: LACTULOSE SYRUP 20 GM/30 ML UDCUP PO SCH (12:00)
[2018-03-28] MEDS: OXYCODONE HCL IR 5 MG TABLET PO PRN (19:49)
[2018-03-28] MEDS: MULTIVITAMIN TABLET PO SCH (21:37)
[2018-03-28] MEDS: POLYETHYLENE GLYCOL 3350 POWDER 17 GM/1 PACKET PO SCH (21:38)
[2018-03-28] MEDS: ATORVASTATIN CALCIUM 40 MG TABLET PO SCH (21:38)
[2018-03-28] MEDS: MULTIVIT-STRESS FORMULA/ZINC TABLET PO SCH (21:38)
[2018-03-29] MEDS: CYCLOBENZAPRINE HCL 10 MG TABLET PO SCH ×2 (03:22→09:51)
[2018-03-29] MEDS: OXYCODONE HCL IR 5 MG TABLET PO PRN ×2 (04:39→13:39)
[2018-03-29] MEDS: GABAPENTIN 300 MG CAPSULE PO SCH ×2 (06:21→13:39)
[2018-03-29 06:36] LABS: ABSOLUTE BASOPHILS # (AUTO) 0.1 10^3/uL (0.0-0.2); ABSOLUTE EOSINOPHILS # (AUTO) 0.3 10^3/uL (0.0-0.6); ABSOLUTE LYMPHOCYTES (AUTO) 1.1 10^3/uL (0.5-4.7); ABSOLUTE MONOCYTES (AUTO) 0.8 10^3/uL (0.1-1.4); ABSOLUTE NEUT (AUTO) 5.9 10^3/uL (1.7-8.2); BASOPHILS % (AUTO) 0.8 % (0-2); EOSINOPHILS % (AUTO) 3.5 % (0-6); HEMATOCRIT 35.6 % (37.9-51.0); HEMOGLOBIN 12.4 g/dL (13.5-17.0); LYMPHOCYTES % (AUTO) 13.1 % (13-45); MEAN CORPUSCULAR HEMOGLOBIN 30.9 pg (27.0-33.4); MEAN CORPUSCULAR HGB CONC 34.8 g/dL (32.0-36.0); MEAN CORPUSCULAR VOLUME 89 fl (80-97); MONOCYTES % (AUTO) 10.1 % (3-13); PLATELET COUNT 137 10^3/uL (150-450); RED CELL DISTRIBUTION WIDTH 13.5 % (11.5-14.0); SEGMENTED NEUTROPHILS % (AUTO) 72.5 % (42-78); TOTAL CELLS COUNTED % (AUTO) 100 %; WHITE BLOOD COUNT 8.2 10^3/uL (4.0-10.5)
--- NOTE | 2018-03-29 06:43 | PDOC DISCHARGE SUMMARY ---
General - Admit/Disc Date/PCP Admission Date/Primary Care Provider: 03/24/18 14:24 WILFRID FALK Discharge Date: 03/29/18 - Discharge Diagnosis (1) Closed left femoral fracture Is this a current diagnosis for this admission?: Yes - Additional Information Resuscitation Status: Full Code Discharge Diet: As Tolerated, Regular Discharge Activity: Balance Activity w/Rest, No Driving, No tub bath Home Medications: Ascorbic Acid [Vitamin C 500 mg Tablet] 500 mg PO QHS 03/24/18 Aspirin 81 mg PO DAILY 03/24/18 Atorvastatin Calcium 40 mg PO QHS 03/24/18 Difluprednate [Durezol] 1 drop OS Q12@0800,2000 03/24/18 Dulaglutide [Trulicity] 1.5 mg SQ MO@1000 03/24/18 Krill/[place]-3/Dha/Epa/Lipids [[place]-3 Krill Oil 500 mg Sfgl] 1 each PO DAILY 01/06 Lisinopril [Prinivil 5 mg Tablet] 5 mg PO DAILY 03/24/18 Multivitamin [Multivitamins] 1 each PO QHS 03/24/18 Nepafenac [Ilevro] 1 drop OS DAILY 03/24/18 Sitagliptin Phos/Metformin HCl [Janumet 50-1,000 mg Tablet] 1 each PO BID Vitamin B Complex/Folic Acid [B-Complex Tablet] 0.4 mg PO QHS 03/24/18 Gabapentin [Neurontin 300 mg Capsule] 600 mg PO Q8 03/25/18 Aspirin [Aspirin 81 mg Chewable Tablet] 81 mg PO QAM tab.chew 03/29/18 Oxycodone HCl [Oxy-Ir 5 mg Tablet] 5 mg PO Q6HP PRN tablet 03/29/18 History of Present Illness History of Present Illness: J CARLOS MCKENNA is a 62 year old male who fell and sustained a left intratrochanteric femur fracture. He was evaluated in emergency room and admitted to the orthopedic service for fracture management. Hospital Course Hospital Course: Patient is admitted through the emergency room and taken the subsequent day to the operating room for an open reduction internal fixation of a left intratrochanteric femur fracture. Surgery was uncomplicated and patient's return to floor in satisfactory condition. Hospital service is consulted for medical management including control of his diabetes. The patient has considerable pain postoperatively which limits his ability to participate with physical therapy initially. Pain medication is adjusted and his progress with physical therapy subsequently improved. Blood glucose control remains loose throughout his hospitalization. Physical Exam Vital Signs: Temp Pulse Resp BP Pulse Ox 36.6 C 81 13 113/68 97 03/28/18 23:19 03/28/18 23:19 03/28/18 23:19 03/28/18 23:19 03/28/18 23:19 Intake & Output 03/27/18 03/28/18 03/29/18 06:59 06:59 06:59 Intake Total 213 223 2212 Output Total 2650 275 1285 Balance -2055 527 -218 Weight 97.9 kg 98.2 kg 99.1 kg General appearance: PRESENT: no acute distress Head exam: PRESENT: normocephalic Respiratory exam: PRESENT: unlabored Cardiovascular exam: PRESENT: RRR Pulses: PRESENT: +1 pedal pulses bilateral Vascular exam: PRESENT: normal capillary refill GI/Abdominal exam: PRESENT: soft Rectal exam: PRESENT: deferred Extremities exam: PRESENT: other - Left lower extremity wounds reapproximated with aurea. The remaining clean dry and intact. Neurological exam: PRESENT: alert, awake, oriented to person, oriented to place , oriented to time, oriented to situation. ABSENT: motor sensory deficit Psychiatric exam: PRESENT: appropriate affect, normal mood. ABSENT: homicidal ideation, suicidal ideation Skin exam: PRESENT: dry, intact, warm. ABSENT: cyanosis, rash Results Laboratory Results: 03/29/18 06:10 03/29/18 06:10 WBC 8.2 RBC 4.00 L Hgb 12.4 L Hct 35.6 L MCV 89 MCH 30.9 MCHC 34.8 RDW 13.5 Plt Count 137 L Seg Neutrophils % 72.5 Lymphocytes % 13.1 Monocytes % 10.1 Eosinophils % 3.5 Basophils % 0.8 Absolute Neutrophils 5.9 Absolute Lymphocytes 1.1 Absolute Monocytes 0.8 Absolute Eosinophils 0.3 Absolute Basophils 0.1 Impressions: Cervical Spine CT 03/24/18 10:30 IMPRESSION: CHRONIC DEGENERATIVE CHANGES. NO ACUTE FINDINGS. Head CT 03/24/18 10:30 IMPRESSION: NO ACUTE INTRACRANIAL IMAGING FINDINGS. EVIDENCE OF ACUTE STROKE: NO. Chest X-Ray 03/24/18 13:22 IMPRESSION: LOW LUNG VOLUMES. NO SIGNIFICANT RADIOGRAPHIC FINDING IN THE CHEST. Chest CT 03/24/18 14:25 IMPRESSION: NORMAL CT OF THE CHEST WITH IV CONTRAST. Abdomen/Pelvis CT 03/24/18 14:42 IMPRESSION: Distended stomach. No other significant finding. Fluoroscopy 03/25/18 00:00 IMPRESSION: IMAGE(S) OBTAINED DURING PROCEDURE. Hip X-Ray 03/25/18 00:00 IMPRESSION: IMAGE(S) OBTAINED DURING PROCEDURE. Status: Imported from PACS Qualifiers - * PATIENT BEING DISCHARGED WITH ANY OF THE FOLLOWING DIAGNOSIS: No VTE patient discharged on overlapping Therapy?: Yes Plan Discharge Plan: Patient to be discharged home with home health services and DME. Follow-up with Dr. Jaquan Davey [place] for surgery in 2 weeks for staple removal. Time Spent: Less than 30 Minutes
[2018-03-29 06:56] LABS: ANION GAP 12 (5-19); BLOOD UREA NITROGEN 27 mg/dL (7-20); CALCIUM 9.2 mg/dL (8.4-10.2); CARBON DIOXIDE 26 mmol/L (22-30); CHLORIDE 99 mmol/L (98-107); GLUCOSE 278 mg/dL (75-110); POTASSIUM 5.5 mmol/L (3.6-5.0); SODIUM 137.4 mmol/L (137-145)
[2018-03-29] MEDS: METFORMIN HCL 500 MG TABLET PO SCH (08:07)
[2018-03-29] MEDS: INSULIN LISPRO 100 UNIT/ML 3 ML VIAL SUBCUT PRN ×2 (08:07→13:39)
[2018-03-29] MEDS: OMEGA-3 ACID ETHYL ESTERS 1 GM CAPSULE PO SCH (08:08)
[2018-03-29] MEDS: ASPIRIN 81 MG TABLET, CHEWABLE PO SCH (08:08)
[2018-03-29] MEDS: LISINOPRIL 5 MG TABLET PO SCH (09:50)
[2018-03-29] MEDS: DOCUSATE SODIUM 100 MG CAPSULE PO SCH (09:51)
[2018-03-29] MEDS: ASCORBIC ACID 500 MG TABLET PO SCH (09:51)
[2018-03-29 12:47] VITALS: BP 133/68
[2018-04-01] MEDS ORDERED: (PENDING PHARMACY ID) (Dulaglutide [Trulicity] 1.5 MG) SQ SCH (10:00)
== END 2018-03-29 13:45 | disposition home health service (06) | DRG 481 ==
LOC: ER 10:09 → EH 14:24 → 4N 16:02
PROVIDERS: ADMIT Orthopaedic Surgery; ATTEND Orthopaedic Surgery
PROC: 0QS734Z Reposition Left Upper Femur with Internal Fixation Device, Percutaneous Approach (ICD-10-PCS; principal; 2018-03-25 10:15)
DX: S72.142A Displaced intertrochanteric fracture of left femur, initial encounter for closed fracture (principal); I45.2 Bifascicular block; D69.6 Thrombocytopenia, unspecified; E11.65 Type 2 diabetes mellitus with hyperglycemia; M62.838 Other muscle spasm; G89.18 Other acute postprocedural pain; K59.00 Constipation, unspecified; I10 Essential (primary) hypertension; E78.5 Hyperlipidemia, unspecified; W13.2XXA Fall from, out of or through roof, initial encounter; Y93.89 Activity, other specified; Y92.89 Other specified places as the place of occurrence of the external cause; Z87.891 Personal history of nicotine dependence; Z79.84 Long term (current) use of oral hypoglycemic drugs; Z79.82 Long term (current) use of aspirin; Z79.899 Other long term (current) drug therapy
CPT/HCPCS: 01230; 36415; 70450; 71045; 71260; 72125; 74177; 80048; 80053; 81001; 82550; 82553; 82962; 83735; 84100; 84484; 85025; 90471; 90715; 93005; 93010; 96361; 96374; 96375; 99285; J0690; J1170; J1815; J2250; J2270; J2405; J2704; J3010; J3475; J3490; J7030; J7120